=== PATIENT | female | born 1940 ===

== ENCOUNTER → 2023-02-09 | Outpatient (CLI) | payer SELFPAY ==
[2023-02-09 18:55] LABS: Source, Urine Clean Catch
[2023-02-09 19:14] LABS: Bilirubin, Urine Neg (Neg); Blood, Urine 1+ (Neg); Color, Urine Yellow (P-Yellow); Glucose Qualitative, Urine Neg (Neg); Ketones, Urine Neg (Neg); Leukocyte Esterase, Urine 2+ (Neg); Nitrite, Urine Neg (Neg); Protein, Urine 1+ (Neg); Urobilinogen, Urine NORM (Normal)
[2023-02-09 19:33] LABS: Appearance, Urine Hazy (Clear)
[2023-02-09 19:34] LABS: Bacteria Few /hpf; Squamous Epithelial Cells Few /hpf (Few)
== END ==
LOC: LAB 09:35 → LAB SHORT 09:35
PROVIDERS: Internal Medicine
DX: N39.0 Urinary tract infection, site not specified (principal); I10 Essential (primary) hypertension
CPT/HCPCS: 81001; 87086